=== PATIENT | female | born 1980 | race Caucasian/White ===

== ENCOUNTER 2020-07-23 18:47 | Emergency (ER) | payer OTHER, SELFPAY ==
--- NOTE | 2020-07-23 18:48 | ED.SKABFB ---
HPI - Skin/Abscess/Foreign Bdy General Chief complaint: Skin/Abscess/Foreign Body Stated complaint: Insect bites Time Seen by Provider: 07/23/20 19:04 Source: patient and RN notes reviewed Mode of arrival: ambulatory Limitations: no limitations History of Present Illness HPI narrative: 40-year-old female presents concern for possible insect bite. She reports the dorsal aspect of her left hand is red, swollen, itchy, tender. She reports she noticed the area yesterday. She reports over the last month she has had 4-5 such similar bites that have become red, swollen, itchy that have mostly gone away. She denies any swollen lips, swollen tongue, trouble swallowing, trouble breathing, nausea, vomiting. Denies taking antihistamines MD complaint: insect bite/sting Related Data Allergies Allergy/AdvReac Type Severity Reaction Status Date / Time No Known Allergies Allergy Verified 07/23/20 19:13 Review of Systems Review of Systems: Narrative: CONSTITUTIONAL: Denies malaise, chills, sweats, or fever. ENT: Denies swollen lips, swollen tongue, trouble swallowing CARDIOVASCULAR: Denies chest pain, palpitations, or edema. RESPIRATORY: Denies cough or dyspnea. GASTROINTESTINAL: Denies abdominal pain, nausea, vomiting, diarrhea SKIN: Reports red, swollen, itchy, tender area on the back of her left hand Musculoskeletal: Denies musculoskeletal pain or injury NEUROLOGIC: Denies headache. All systems reviewed & are unremarkable except as noted in HPI and below PMFSH Comments At time of signature, agree with nursing past medical, surgical, social and family history. There is no relevant family history pertinent to the presenting complaint Exam Narrative: Exam Narrative: GENERAL: Well-appearing, well-nourished, and in no acute distress. HEAD: Normocephalic, atraumatic. EYES: PERRLA, conjunctivae clear, and EOMI. ENT: Mucous membranes moist. Oropharynx without edema, erythema or lesions. NECK: Supple. No lymphadenopathy CHEST: Clear to auscultation. No respiratory distress. HEART: Regular rate and rhythm. SKIN: Warm, dry. Dorsal aspect of left hand is erythematous, slightly warm with no open wounds noted. And erythematous papules noted on the left lower leg. No fluctuation noted to any area NEURO: Alert and oriented x3. PSYCH: Normal mood and affect Course Course Emergency Course: Patient is aware of diagnosis, understands and agrees to treatment plan. Anticipatory guidance given. Patient agrees to follow-up as directed and is aware of reasons to seek care at the emergency department. Portions of this record may have been created with voice recognition software Vital Signs Vital signs: Vital Signs Temperature 97.9 F 07/23/20 18:58 Pulse Rate 102 H 07/23/20 18:58 Respiratory Rate 16 07/23/20 18:58 Blood Pressure 124/80 07/23/20 18:58 Pulse Oximetry 100 07/23/20 18:58 Temperature 97.9 F 07/23/20 18:58 Pulse Rate 102 H 07/23/20 18:58 Respiratory Rate 16 07/23/20 18:58 Blood Pressure 124/80 07/23/20 18:58 Pulse Oximetry 100 07/23/20 18:58 Reviewed. MDM - Skin/Abscess/Foreign Bdy MDM Narrative Medical decision making narrative: Does not appear at this time to be erythema multiforme, bullous, SJS, TEN; no evidence at this time to suggest RMSF, endocarditis or Lyme disease; patient looks well, nontoxic and is tolerating oral intake; no neurologic signs or symptoms; no headache, photophobia or neck pain; afebrile; appropriate for initial outpatient treatment; discussed the importance of follow-up, patient agrees; question, viral exanthema, contact dermatitis, allergic dermatitis, eczema, urticaria, insect bites, cellulitis. No soft palate or uvula edema, no tongue, lip edema or other mucosal involvement, no respiratory compromise, no stridor, no wheezing, no wheezing, no history of syncope, no hypotension, no nausea, vomiting, or diarrhea. Instructed patient to go to nearest ER immediately for any worsening symptoms
[2020-07-23 18:58] VITALS: BP 124/80; PULSE 102; RESP 16; TEMP 36.6; O2SAT 100
== END 2020-07-23 19:15 | disposition home or self-care (01) ==
PROVIDERS: Emergency Provider Nurse Practitioner
DX: S60.562A Insect bite (nonvenomous) of left hand, initial encounter (principal); W57.XXXA Bitten or stung by nonvenomous insect and other nonvenomous arthropods, initial encounter
CPT/HCPCS: 99203; G0463

== ENCOUNTER 2021-02-27 17:15 | Emergency (ER) | payer OTHER, SELFPAY ==
[2021-02-27 17:49] VITALS: BP 131/83; PULSE 99; RESP 16; TEMP 36.7; O2SAT 100
--- NOTE | 2021-02-27 19:28 | ED.BACK ---
HPI - Back Pain/Injury General Chief Complaint: Back Pain/Injury Stated Complaint: Lower back pain Time Seen by Provider: 02/27/21 19:28 Source: patient Mode of arrival: ambulatory Limitations: no limitations History of Present Illness HPI Narrative: Patient is a 40-year-old female with no PMH that started to have right-sided back pain on that now radiates down into her lower right side-she rates the pain as 7 or 8 out of 10, states she has a history of hernias. Related Data Home Medications Medication Instructions Recorded Confirmed No Home Medications 02/27/21 02/27/21 Allergies Allergy/AdvReac Type Severity Reaction Status Date / Time No Known Allergies Allergy Verified 07/23/20 19:13 Review of Systems Review of Systems: CONSTITUTIONAL: Denies fever, chills, sweats. EYES: Denies visual changes, redness, discharge. ENT: Denies rhinorrhea, congestion, sore throat, otalgia. CARDIOVASCULAR: Denies chest pain, palpitations, edema. RESPIRATORY: Denies dyspnea, wheezing, cough GASTROINTESTINAL: Denies abdominal pain, nausea, vomiting, diarrhea. GENITOURINARY: Some dysuria, hematuria, abnormal discharge SKIN: Denies rash or itching. NEUROLOGIC: Denies numbness, or focal weakness. PSYCHIATRIC: Denies anxiety or depression. Has right-sided back pain PMFSH Comments At time of signature, I agree with nursing past medical, surgical, social and family history. There is no relevant family history pertinent to the presenting complaint. Exam Narrative: GENERAL: This is a well-nourished, well-developed patient, in agitated, moderate distress. HEAD: normocephalic, atraumatic. EYES: Sclera clear/white. Vision is grossly intact. EARS: External ears normal. Hearing grossly intact. NOSE: External nose normal without nasal discharge, nares without redness, no rhinorrhea. THROAT: Mucous membranes moist, NECK: Neck supple, non-tender CARDIOVASCULAR: Tachycardic rate and rhythm without murmurs, gallops, or rubs. RESPIRATORY: Clear to auscultation. Breath sounds equal bilaterally. No wheezes, rales, or rhonchi. GASTROINTESTINAL: Abdomen soft, tender,-right-sided flank pain that is rating into the lower right abdomen- says she cannot get comfortable -rates pain as 7 out of 10 SKIN: warm, intact with no suspicious lesions or rash, good texture and turgor. NEURO: awake, alert, and oriented to person, place and time. There were no obvious focal neurologic abnormalities. Steady gait EXTREMITIES: Normal range of motion. BACK: Nontender without deformity Course Course Emergency Course: Patient comes with right flank pain that is rating into the right abdomen, pain is 7 out of 10 UA done which was totally normal Transferred to [facility] and spoke with Dr. Winters who will accept the patient Vital Signs Vital signs: Vital Signs Temperature 98.1 F 02/27/21 17:49 Pulse Rate 99 02/27/21 17:49 Respiratory Rate 16 02/27/21 17:49 Blood Pressure 131/83 02/27/21 17:49 Pulse Oximetry 100 02/27/21 17:49 Temperature 98.1 F 02/27/21 17:49 Pulse Rate 99 02/27/21 17:49 Respiratory Rate 16 02/27/21 17:49 Blood Pressure 131/83 02/27/21 17:49 Pulse Oximetry 100 02/27/21 17:49 MDM - Back Pain/Injury Differential Diagnosis Differential diagnosis: Likely sciatica, strain of lumbar region and other (Appendicitis versus diverticulitis versus hernia ) Lab Data Labs: Urine Glucose Negative Reference Range: Negative Urine Bilirubin Negative Reference Range: Negative Urine Ketone Negative Reference Range: Negative Urine Specific Reynolds 1.015 Reference Range:1.001-1.035 Urine Blood Negative
== END 2021-02-27 19:58 | disposition short-term general hospital (02) ==
PROVIDERS: Emergency Provider Nurse Practitioner
DX: R10.31 Right lower quadrant pain (principal)
CPT/HCPCS: 81003; 99212; G0463

== ENCOUNTER 2021-03-01 01:45 | Emergency (ER) | payer OTHER, SELFPAY ==
[2021-03-01 01:47] VITALS: BP 138/97; PULSE 83; RESP 20; TEMP 36.4; O2SAT 98
== END 2021-03-02 03:17 | disposition left against medical advice (07) ==
LOC: ANHED 04:52
DX: R10.9 Unspecified abdominal pain (principal)
CPT/HCPCS: 99199

== ENCOUNTER 2021-06-08 19:12 | Emergency (ER) | payer OTHER, SELFPAY ==
[2021-06-08 19:19] VITALS: BP 136/86; PULSE 100; RESP 18; TEMP 36.2; O2SAT 100
--- NOTE | 2021-06-08 19:20 | ED.SKABFB ---
HPI - Skin/Abscess/Foreign Bdy General Chief complaint: Skin/Abscess/Foreign Body Stated complaint: Rash on Hand Time Seen by Provider: 06/08/21 19:21 Source: patient Mode of arrival: ambulatory Limitations: no limitations History of Present Illness HPI narrative: 41 y/o female presented for c/o rash to left hand, for 6 months. Endorses itching and red raised areas to the thumb, index and middle fingers spreading to palm. States it is affecting the left thumbnail now as well. Endorses occasional presentation on the right foot but not currently. No other locations. Denies changes to cream, lotion, soap etc. MD complaint: rash Related Data Allergies Allergy/AdvReac Type Severity Reaction Status Date / Time No Known Allergies Allergy Verified 06/08/21 19:21 Review of Systems Review of Systems: CONSTITUTIONAL: Denies body aches, fever, chills, or sweats. EYES: Denies visual changes, redness, or discharge. ENT: Denies rhinorrhea, congestion, sore throat, or otalgia. CARDIOVASCULAR: Denies chest pain, palpitations, or edema. RESPIRATORY: Denies cough or dyspnea. GASTROINTESTINAL: Denies abdominal pain, nausea, vomiting, or diarrhea. GENITOURINARY: Denies dysuria or hematuria. SKIN: endorses rash, itching to left hand MUSCULOSKELETAL: Denies back pain, joint pain, or myalgia. NEUROLOGIC: Denies headache, numbness, tingling, or weakness. PSYCH: Denies depression or anxiety. PMFSH Comments At time of signature, I have reviewed and agree with nursing past medical, surgical, social and family history unless otherwise noted. Please see nursing chart for further information. There is no relevant family history pertinent to the presenting complaint Exam Narrative: GENERAL: Well-appearing HEAD: Normocephalic, atraumatic. EYES: conjunctivae clear, and EOMI. ENT: Mucous membranes moist. Oropharynx without edema, erythema or lesions. NECK: Supple. No lymphadenopathy CHEST: Clear to auscultation. No respiratory distress. HEART: Regular rate and rhythm. SKIN: Warm, dry. Scattered Patches of erythema and raised lesions to left 1st, 2nd and 3rd digits, spreading to the palmar surface, no active bleeding or drainage. NEURO: Alert and oriented x3. PSYCH: Normal mood and affect Course Course Emergency Course: Patient is aware of diagnosis, understands and agrees to treatment plan. Anticipatory guidance given. Patient agrees to follow-up as directed and is aware of reasons to seek care at the emergency department. Portions of this record may have been created with voice recognition software Level of Care: Express Care Visit Vital Signs Vital signs: Vital Signs Temperature 97.2 F L 06/08/21 19:19 Pulse Rate 100 06/08/21 19:19 Respiratory Rate 18 06/08/21 19:19 Blood Pressure 136/86 06/08/21 19:19 Pulse Oximetry 100 06/08/21 19:19 Temperature 97.2 F L 06/08/21 19:19 Pulse Rate 100 06/08/21 19:19 Respiratory Rate 18 06/08/21 19:19 Blood Pressure 136/86 06/08/21 19:19 Pulse Oximetry 100 06/08/21 19:19 Reviewed MDM - Skin/Abscess/Foreign Bdy MDM Narrative Medical decision making narrative: Does not appear at this time to be erythema multiforme, bullous, SJS, TEN; no evidence at this time to suggest RMSF, endocarditis or Lyme disease Patient looks well, nontoxic afebrile; appropriate for initial outpatient treatment; discussed the importance of follow-up, patient agrees. Instructed patient to go to nearest ER immediately for any worsening symptoms including but not limited to: fever, spreading rash, pain, sore throat, headache, dizziness, chest pain, trouble breathing, or any symptoms concerning to the patient. Differential Diagnosis Differential diagnosis: Likely abscess of skin or subcutaneous tissue, urticaria, herpes zoster, cellulitis, eczema and contact dermatitis Discharge Plan Discharge Clinical Impression: Dermatitis Patient Disposition: Home, Self-Care Condition: Stable Instru
== END 2021-06-08 19:30 | disposition home or self-care (01) ==
PROVIDERS: Emergency Provider Nurse Practitioner Family
DX: L30.9 Dermatitis, unspecified (principal)
CPT/HCPCS: 99213; G0463

== ENCOUNTER 2024-11-26 17:40 | Emergency (ER) | payer OTHER, SELFPAY ==
--- NOTE | ~2024-11-26 | XR_ITS ---
XR hip LT min 2V 11/26/2024 18:04 Indication: Left hip pain Procedure: 2 views left Comparison: No prior studies for comparison. Findings: No fracture, subluxation or dislocation. There are degenerative changes of the pubic symphysis. No soft tissue abnormality. No foreign bodies. Impression: 1: No acute bone or joint abnormality. Reviewed, dictated and finalized at location O. Impression: 1: No acute bone or joint abnormality.
--- NOTE | 2024-11-26 17:48 | ED.GENADULT ---
HPI - General Adult General Chief complaint: Extremity Injury, Lower Stated complaint: lt hip pain Time Seen by Provider: 11/26/24 17:50 Source: patient, RN notes reviewed and old records reviewed Mode of arrival: ambulatory Limitations: no limitations History of Present Illness HPI narrative: 44-year-old female presents to the [facility] with complaints of left hip pain for 1 month. Reports lateral, internal hip pain. Denies any injury. No treatment prior to arrival. States it is interfering with her walking however she is walking with a normal gait in clinic. No bruising, swelling noted. Unable to reproduce pain with palpation Onset (ago): month(s) (1) Treatments prior to arrival: none Related Data Home Medications ?Medication ?Instructions ?Recorded ?Confirmed ?Last Taken ?Type otc omeprazole 11/26/24 Unknown History Allergies Allergy/AdvReac Type Severity Reaction Status Date / Time No Known Allergies Allergy Verified 11/26/24 17:50 Review of Systems Review of Systems: All systems reviewed & are unremarkable except as noted in HPI and below Constitutional: Constitutional: Reports no additional constitutional complaints Musculoskeletal: Musculoskeletal: Reports as per HPI Integumentary/Breasts: Skin/Breast: Reports system reviewed and no additional complaints, except as docu PMFSH Comments At the time of my signature, I reviewed and agree with the nursing past medical, surgical, social, and family history. There is no relevant family history pertinent to the patient complaint. Exam Const: General: cooperative, healthy appearing, comfortable, no acute distress, well developed, alert and well nourished Nutritional Appearance: well nourished Orientation/consciousness: patient oriented x3 Limitations: no limitations HENMT: Head: normal to inspection Mouth: Yes Normal oral and palatal mucosa present, Yes lip normal, Yes tongue normal and Yes moist mucous membranes Eyes: General: appearance normal, both eyes and all related structures Alignment and Position: alignment normal Neck: Neck: normal visual inspection, full ROM, no lymphadenopathy and no meningeal signs Chest: Chest palpation & inspection: normal inspection of the chest Resp: Effort & Inspection: normal respiratory effort and able to speak in complete sentences Cardio: Rate: regular rate Back/Spine/Pelvis: Back: no CVA tenderness and No back tenderness Skin: General skin exam: normal color and no rashes or lesions noted Neuro: General: patient oriented x3, gait normal, moves all extremities and no meningeal signs Cognition (Neuro): normal cognition Speech: normal speech Gait exam (Neuro): Normal gait present Extrem: General: normal to inspection, full ROM, capillary refill normal and normal gait Left lower extremity: hip/thigh Details: normal to inspection and normal ROM; no tenderness, no swelling, no abrasions, no lacerations, no ecchymosis, no foreign bodies, no penetrating wound and no deformity Psych: Appearance: grossly normal and well kempt Mental Status: mental status grossly normal Speech and movement: Normal speech and movement present and Clear speech present Affect: normal affect Attitude: cooperative Course Course Level of Care: Express Care Visit Vital Signs Vital signs: Vital Signs Temperature 98.3 F 11/26/24 17:51 Pulse Rate 102 H 11/26/24 17:51 Respiratory Rate 18 11/26/24 17:51 Blood Pressure 131/85 11/26/24 17:51 Pulse Oximetry 100 11/26/24 17:51 Oxygen Delivery Room Air 11/26/24 17:51 Temperature 98.3 F 11/26/24 17:51 Pulse Rate 102 H 11/26/24 17:51 Respiratory Rate 18 11/26/24 17:51 Blood Pressure 131/85 11/26/24 17:51 Pulse Oximetry 100 11/26/24 17:51 Oxygen Delivery Room Air 11/26/24 17:51 Reviewed Medical Decision Making MDM Narrative Medical decision making narrative: Patient sitting in exam room. Patient is nontoxic, vitals stable. Patient presents with left hip pain for over 1 month. Denies any injury. No rashes, ecchymosis, swelling noted. Patient is walking with a normal gait. Unable to reproduce pain on palpation. Patient reports that the pain is more internal. Discussed with patient that is extremely important to follow-up with primary care provider for further evaluation. Hip x-ray was negative for acute findings Discharge instructions reviewed with patient, as well as provided in writing per nursing staff. The instructions also include specific and strict return/GO TO THE ER as well as f/u information. All questions have been answered, and the patient deny any further questions with discharge and discharge plan. Some parts of this dictation were generated by voice recognition software and may contain typographical and/or grammatical inaccuracies. Differential Diagnosis Differential Diagnosis: Arthritis, ligament injury, tendon injury Medical Records Medical records reviewed: Yes I reviewed the external patient's medical records. Vital Signs Vital Signs: Vital Signs Temperature 98.3 F 11/26/24 17:51 Pulse Rate 102 H 11/26/24 17:51 Respiratory Rate 18 11/26/24 17:51 Blood Pressure 131/85 11/26/24 17:51 Pulse Oximetry 100 11/26/24 17:51 Oxygen Delivery Room Air 11/26/24 17:51 Temperature 98.3 F 11/26/24 17:51 Pulse Rate 102 H 11/26/24 17:51 Respiratory Rate 18 11/26/24 17:51 Blood Pressure 131/85 11/26/24 17:51 Pulse Oximetry 100 11/26/24 17:51 Oxygen Delivery Room Air 11/26/24 17:51 Reviewed Lab Data Lab results reviewed: Yes I reviewed the patient's lab results. Labs: Reviewed Imaging Data Radiologist's impression: XR hip LT min 2V 11/26/2024 18:04 Indication: Left hip pain Procedure: 2 views left Comparison: No prior studies for comparison. Findings: No fracture, subluxation or dislocation. There are degenerative changes of the pubic symphysis. No soft tissue abnormality. No foreign bodies. Impression: 1: No acute bone or joint abnormality. Critical Care Time Critical Care Time Critical Care Time: No Discharge Plan Discharge Clinical Impression: Acute pain of left hip Patient Disposition: Home Condition: Stable Instructions: Antibiotic Form, Hip Pain (ED) Additional Instructions: Your Xray did not show a fracture. You can alternate ice and heat to help with the pain and discomfort. It can be used for 20 to 30 minutes, every 2-3 hours while awake. Do not apply ice directly to your skin. You can alternate ibuprofen 600mg and Tylenol 650mg every 4 hours as needed for pain Please schedule a follow-up visit with your personal physician for further evaluation and treatment within 2 weeks especially if symptoms persist. For new or worsening symptoms go directly to the emergency room Patient Language: Kinyarwanda Prescriptions: New ibuprofen 600 mg tablet 600 mg PO TID PRN (Reason: fever or pain) Qty: 30 0RF No Action otc omeprazole Follow-up/Referrals: PHYSICIAN,E MAIL SYSTEM ADMINISTRATOR [Primary Care Provider, Internal Medicine] Radhames Leon MD [Physician, Family Practice] Time of Disposition: 18:14
[2024-11-26 17:51] VITALS: BP 131/85; PULSE 102; RESP 18; TEMP 36.8; O2SAT 100
== END 2024-11-26 18:26 | disposition home or self-care (01) ==
PROVIDERS: Emergency Provider Nurse Practitioner
DX: M25.552 Pain in left hip (principal); K21.9 Gastro-esophageal reflux disease without esophagitis
CPT/HCPCS: 73502; 99213; G0463